=== PATIENT | male | born 2000 | race Caucasian/White ===

== ENCOUNTER 2020-09-05 04:16 | Inpatient (IN) | payer BC, OTHER ==
[2020-09-02 10:44] VITALS: BMI 46.7
[2020-09-05] MEDS ORDERED: BUPIVACAINE HCL 100 ML ONE ×2 (07:31→07:41)
[2020-09-05] MEDS ORDERED: BUPIVACAINE LIPOSOME/PF (EXPAREL) 266 MG/20 ML VIAL ONE (07:31)
[2020-09-05] MEDS ORDERED: MIDAZOLAM HCL 2 MG/2 ML SINGLE DOSE VIAL ONE ×4 (07:33→08:06)
[2020-09-05] MEDS ORDERED: BUPIVACAINE HCL/PF 0.25% (2.5MG/ML) 10 ML VIAL ONE (07:47)
[2020-09-05] MEDS ORDERED: PROPOFOL 20 ML ONE ×2 (07:49)
[2020-09-05] MEDS ORDERED: ROCURONIUM BROMIDE 50 MG/5 ML SYRINGE ONE ×2 (07:49→09:05)
[2020-09-05] MEDS ORDERED: fentaNYL CITRATE 250 MCG/5 ML VIAL ONE (07:49)
[2020-09-05] MEDS ORDERED: SUCCINYLCHOLINE CHLORIDE 200 MG/10 ML SYRINGE ONE (07:49)
[2020-09-05] MEDS ORDERED: DEXAMETHASONE SOD PHOSPHATE 4 MG/1 ML VIAL ONE (08:35)
[2020-09-05] MEDS ORDERED: ceFAZolin SODIUM 1 GM VIAL ONE (08:36)
[2020-09-05] MEDS ORDERED: ceFAZolin SODIUM 1 GM VIAL IVPB ONE (08:37)
[2020-09-05] MEDS ORDERED: NEOSTIGMINE METHYLSULFATE 0.5 MG/ML - 10 ML MDV ONE (10:02)
[2020-09-05] MEDS ORDERED: GLYCOPYRROLATE 0.2 MG/1 ML VIAL ONE (10:02)
[2020-09-05] MEDS ORDERED: BUPIVACAINE HCL/PF 0.25% (2.5MG/ML) 10 ML VIAL IJ ONE (10:03)
[2020-09-05] MEDS ORDERED: ONDANSETRON 4 MG/2 ML VIAL IVPUSH PRN ×2 (10:13→10:31)
[2020-09-05] MEDS ORDERED: SODIUM CHLORIDE 1,000 ML IV SCH (10:15)
[2020-09-05] MEDS ORDERED: ACETAMINOPHEN 1000 MG/100 ML VIAL (NON FORMULARY) IVPB ONE ×2 (10:31→10:40)
[2020-09-05] MEDS ORDERED: FAMOTIDINE 20 MG/50 ML IVPB 20 MG/50 ML MG IVPB ONE (10:37)
[2020-09-05] MEDS ORDERED: LACTATED RINGERS SOLUTION 1,000 ML IV SCH (10:45)
[2020-09-05] MEDS ORDERED: FAMOTIDINE 20 MG PREMIXED IVPB IVPB ONE (10:55)
[2020-09-05] MEDS ORDERED: ONDANSETRON 4 MG/2 ML VIAL IVPUSH ONE (11:10)
[2020-09-05 11:28] LABS: HEMATOCRIT 42.7 % (35.4-49); HEMOGLOBIN 13.8 GM/dL (11.7-16.9); MCH 27.1 pg (25.7-33.7); MCHC 32.3 g/dl (32.0-35.9); MEAN CELL VOLUME 83.9 fl (80-96); MEAN PLT VOLUME 8.9 fl (7.5-11.1); PLATELET COUNT 285 10^3/uL (134-434); RBC 5.09 M/mm3 (4.00-5.60); RDW 13.6 % (11.9-15.9); WHITE BLOOD COUNT 11.2 K/mm3 (4.0-10.0)
[2020-09-05 11:48] LABS: CALCIUM 8.7 mg/dL (8.5-10.1)
[2020-09-05 11:49] LABS: BLOOD UREA NITROGEN 11.7 mg/dL (7-18)
[2020-09-05 11:52] LABS: CREATININE 0.9 mg/dL (0.55-1.3)
[2020-09-05 11:53] LABS: BILIRUBIN,TOTAL 0.6 mg/dL (0.2-1)
[2020-09-05 11:54] LABS: TOT PROT 7.6 g/dl (6.4-8.2)
[2020-09-05] MEDS ORDERED: HYDROmorphone HCL CARPU-JECT 2 MG/1 ML DISP.SYRIN IVPUSH ONE ×2 (12:00→12:32)
[2020-09-05] MEDS ORDERED: HYDROmorphone HCl 2 MG/ML VIAL ONE (12:07)
[2020-09-05 14:59] LABS: ARTERIAL BLD GAS O2 SATURATION 97.3 mmHg (95-98); ARTERIAL BLOOD GAS BASE EXCESS -1.7 mmol/L (-2-2); ARTERIAL BLOOD GAS PO2 99.4 mmHg (80-100); ARTERIAL BLOOD GAS pH 7.358 (7.350-7.450)
[2020-09-05 15:02] LABS: ALLENS TEST POSITIVE
[2020-09-05] MEDS: HYDROmorphone HCl 2 MG/ML VIAL IVPB PRN ×2 (16:43→20:20)
[2020-09-05] MEDS: METOCLOPRAMIDE HCL INJECTION 10 MG/2 ML VIAL IVPUSH SCH ×3 (16:59→22:03)
[2020-09-05 20:17] LABS: HEMATOCRIT 41.3 % (35.4-49); HEMOGLOBIN 13.7 GM/dL (11.7-16.9); MCH 27.5 pg (25.7-33.7); MCHC 33.3 g/dl (32.0-35.9); MEAN CELL VOLUME 82.7 fl (80-96); MEAN PLT VOLUME 8.6 fl (7.5-11.1); PLATELET COUNT 299 10^3/uL (134-434); RBC 4.99 M/mm3 (4.00-5.60); RDW 13.7 % (11.9-15.9); WHITE BLOOD COUNT 11.3 K/mm3 (4.0-10.0)
[2020-09-05 20:49] LABS: CALCIUM 8.8 mg/dL (8.5-10.1)
[2020-09-05 20:50] LABS: ALBUMIN 4.1 g/dl (3.4-5.0); BLOOD UREA NITROGEN 8.4 mg/dL (7-18)
[2020-09-05 20:53] LABS: CREATININE 0.8 mg/dL (0.55-1.3)
[2020-09-05 20:54] LABS: BILIRUBIN,TOTAL 0.5 mg/dL (0.2-1)
[2020-09-05 20:55] LABS: TOT PROT 7.8 g/dl (6.4-8.2)
[2020-09-05] MEDS: FAMOTIDINE 20 MG/50 ML IVPB 20 MG/50 ML MG IVPB SCH (22:04)
[2020-09-06] MEDS: HYDROmorphone HCl 2 MG/ML VIAL IVPB PRN ×2 (02:56→06:24)
[2020-09-06] MEDS: METOCLOPRAMIDE HCL INJECTION 10 MG/2 ML VIAL IVPUSH SCH ×2 (03:49→11:21)
[2020-09-06 07:27] LABS: HEMATOCRIT 39.6 % (35.4-49); HEMOGLOBIN 13.3 GM/dL (11.7-16.9); MCH 27.6 pg (25.7-33.7); MCHC 33.7 g/dl (32.0-35.9); MEAN CELL VOLUME 81.8 fl (80-96); MEAN PLT VOLUME 8.6 fl (7.5-11.1); PLATELET COUNT 295 10^3/uL (134-434); RBC 4.84 M/mm3 (4.00-5.60); RDW 13.4 % (11.9-15.9); WHITE BLOOD COUNT 12.9 K/mm3 (4.0-10.0)
[2020-09-06 08:05] LABS: BLOOD UREA NITROGEN 7.7 mg/dL (7-18); CALCIUM 8.7 mg/dL (8.5-10.1)
[2020-09-06 08:06] LABS: ALBUMIN 3.9 g/dl (3.4-5.0)
[2020-09-06 08:09] LABS: CREATININE 0.7 mg/dL (0.55-1.3)
[2020-09-06 08:10] LABS: BILIRUBIN,TOTAL 0.8 mg/dL (0.2-1)
[2020-09-06 08:11] LABS: TOT PROT 7.3 g/dl (6.4-8.2)
[2020-09-06] MEDS ORDERED: D5-1/2NS+30 MEQ KCL - 30 MEQ/1,000 ML INFUS.BAG IV SCH (08:45)
[2020-09-06] MEDS ORDERED: FLU VACCINE (FLULAVAL) PF 60 MCG/0.5 ML SYRINGE 2020-2021 IM ONE (11:00)
[2020-09-06] MEDS ORDERED: PT OWN MED DRAWER 7, Y5N ONE (11:16)
[2020-09-06] MEDS: FAMOTIDINE 20 MG/50 ML IVPB 20 MG/50 ML MG IVPB SCH (11:21)
[2020-09-06 15:12] VITALS: BP 164/90; PULSE 86; TEMP 98.5
== END 2020-09-06 15:34 | disposition home or self-care (01) | DRG 621 ==
LOC: J2C 04:16 → EDSTATUS 11:00 → J4S 16:20
PROVIDERS: ADMIT Surgery; ATTEND Surgery
PROC: 0DB64Z3 Excision of Stomach, Percutaneous Endoscopic Approach, Vertical (ICD-10-PCS; principal; 2020-09-05 08:00)
PROC: 0FB20ZX Excision of Left Lobe Liver, Open Approach, Diagnostic (ICD-10-PCS; 2020-09-05 08:00)
DX: E66.01 Morbid (severe) obesity due to excess calories (principal); Z68.42 Body mass index [BMI] 45.0-49.9, adult; R16.0 Hepatomegaly, not elsewhere classified
CPT/HCPCS: 36415; 36600; 74240-TC-FY; 80053; 82803; 85027; 86850; 86900; 86901; 88305-TC; 88307-TC; 94010; 94660; 94760; J0131